=== PATIENT | male | born 1935 | race Caucasian/White ===

== ENCOUNTER 2020-05-23 21:03 | Emergency (ER) | payer MEDICARE, BC ==
[~2020-05-23] VITALS: Ht 175.3 cm; Wt 84.4 kg
[2020-05-23 21:20] VITALS: BP 145/87
[2020-05-23] MEDS ORDERED: ACETAMINOPHEN ES 500 MG TABLET PO ONE (22:00)
[2020-05-23] MEDS ORDERED: ACETAMINOPHEN ES 500 MG TABLET ONE (22:01)
== END 2020-05-23 22:41 | disposition home or self-care (01) ==
LOC: ER 21:08
DX: R51.9 Headache, unspecified (principal); Z88.8 Allergy status to other drugs, medicaments and biological substances
CPT/HCPCS: 70450-TC